=== PATIENT | female | born 1955 | race American Indian/Alaskan Native ===

== ENCOUNTER 2016-10-15 11:48 | Inpatient (IN) | payer MEDICARE ==
[2016-10-15] MEDS ORDERED: PEPCID IV ONE (12:58)
[2016-10-15] MEDS ORDERED: BENADRYL IV ONE (12:58)
--- NOTE | 2016-10-15 13:03 | Emergency Department Report ---
HPI - General Chief Complaint: Allergic Reaction Time Seen by Provider: 10/15/16 12:10 - HPI HPI: Room 16 The patient is a 60-year-old female presenting with a chief complaint of lip swelling. Patient states last night she noticed swelling over upper lip. The patient states this morning swelling had increased and she felt as though the right side of her face was developing edema as well. Patient denies any preceding trauma. Patient denies shortness of breath or tongue swelling. Patient states she has had a chronic cough since April 2016 unknown etiology. The patient states she's been on lisinopril for 5 years. Location: [see above] Duration: Constant since last night Quality: Swelling Severity: Moderate Modifying factors: [see above] Context: [see above] Mode of transportation: [not driving] ED Past Medical Hx - Past Medical History Hx Hypertension: Yes Hx Diabetes: Yes Hx Arthritis: Yes Hx Asthma: Yes - Surgical History Additional Surgical History: Breast reduction surgery 07/28 - Family History Family history: no significant - Social History Smoking Status: Never Smoker Substance Use Type: None - Medications Home Medications: Home Medications Medication Instructions Recorded Confirmed Last Taken Type Metoprolol Xl [Metoprolol 100 mg PO DAILY 06/28/13 06/21/15 06/21/15 History SUCCINATE ER TAB] metFORMIN [Glucophage] 500 mg PO BID 06/28/13 06/21/15 06/21/15 History Esomeprazole Magnesium [NexIUM] 40 mg PO DAILY 04/20/14 06/21/15 06/21/15 History Aspirin BABY CHEW TAB 81 mg PO DAILY 11/11/14 06/21/15 06/21/15 History Crestor 10 mg PO DAILY 11/11/14 06/21/15 06/21/15 History Lisinopril 10 mg PO DAILY 11/11/14 06/21/15 06/21/15 History ED Review of Systems ROS: Stated complaint: SWELLING IN MOUTH AREA Other details as noted in HPI Comment: All other systems reviewed and negative Constitutional: denies: chills, fever Eyes: denies: eye pain, eye discharge, vision change ENT: other (lip swelling). denies: throat pain Respiratory: denies: cough, shortness of breath, wheezing Cardiovascular: denies: chest pain, palpitations Endocrine: no symptoms reported Gastrointestinal: as per HPI Genitourinary: denies: urgency, dysuria, discharge Musculoskeletal: denies: back pain, joint swelling, arthralgia Skin: denies: rash, lesions Neurological: denies: headache, weakness, paresthesias Psychiatric: denies: anxiety, depression Hematological/Lymphatic: denies: easy bleeding, easy bruising Physical Exam - Physical Exam Vital Signs: Vital Signs 10/15/16 12:00 Temperature 98.1 F Pulse Rate 80 Respiratory 20 Rate Blood Pressure 136/66 O2 Sat by Pulse 98 Oximetry Physical Exam: GENERAL: The patient is well-developed well-nourished female lying on stretcher not appearing to be in acute distress. [] HEENT: Normocephalic. Atraumatic. Extraocular motions are intact. Patient has moist mucous membranes. Moderate edema of the upper lip. Oropharynx is clear NECK: Supple. There is no stridor CHEST/LUNGS: Clear to auscultation. There is no respiratory distress noted. HEART/CARDIOVASCULAR: Regular. There is no tachycardia. There is no gallop rub or murmur. ABDOMEN: Abdomen is soft, nontender. Patient has normal bowel sounds. There is no abdominal distention. SKIN: There is no rash. There is no edema. There is no diaphoresis. NEURO: The patient is awake, alert, and oriented. The patient is cooperative. The patient has normal speech MUSCULOSKELETAL: There is no evidence of acute injury. ED Course Vital Signs 10/15/16 12:00 Temperature 98.1 F Pulse Rate 80 Respiratory 20 Rate Blood Pressure 136/66 O2 Sat by Pulse 98 Oximetry ED Medical Decision Making - Differential Diagnosis angioedema Critical care attestation.: If time is entered above; I have spent that time in minutes in the direct care of this critically ill patient, excluding procedure time. ED Disposition Clinical Impression: Angioedema of lips Disposition: OP ADMITTED IP TO THIS HOSP Is pt being admited?: Yes Does the pt Need Aspirin: Yes Condition: Fair Referrals: PRIMARY CARE, [Primary Care Provider] - 3-5 Days Time of Disposition: 13:10 (hospitalist paged. Labs pending)
--- NOTE | 2016-10-15 13:11 | History and Physical Report ---
History of Present Illness Chief complaint: My lip is swollen History of present illness: 60 YO Female with HTN, DM, Metabolic Syndrome, OA, Asthma, MO presents to ED for evaluation. Patient states that she has experienced swelling in her lip for the past 1 day, with worsening symptoms over the past 6 hours. Pt states that she initially noticed the swelling last night, but awoke this morning to discover that the swelling had gotten worse. Patient denies fever, chills, skin rash, trauma, drooling, tongue swelling, shortness of breath, NVD, recent ill contacts, ingestio of food or water from new or different sources. Past History Past Medical History: arthritis, diabetes, hypertension Past Surgical History: Other (breast reduction) Social history: , lives with family. denies: smoking, alcohol abuse, prescription drug abuse, IV drug use Family history: diabetes, hypertension Medications and Allergies Allergies Allergy/AdvReac Type Severity Reaction Status Date / Time lisinopril Allergy Severe Angioedema Verified 10/15/16 13:19 Home Medications Medication Instructions Recorded Confirmed Last Taken Type Metoprolol Xl [Metoprolol 100 mg PO DAILY 06/28/13 10/15/16 10/14/16 19:00 History SUCCINATE ER TAB] 100MG metFORMIN [Glucophage] 500 mg PO BID 06/28/13 10/15/16 10/14/16 19:00 History 500MG Esomeprazole Magnesium [NexIUM] 40 mg PO DAILY 04/20/14 10/15/16 10/14/16 19:00 History 40MG Aspirin BABY CHEW TAB 81 mg PO DAILY 11/11/14 10/15/16 10/14/16 19:00 History 81M G Crestor 10 mg PO DAILY 11/11/14 10/15/16 10/14/16 19:00 History 10MG Lisinopril 10 mg PO DAILY 11/11/14 10/15/16 10/14/16 19:00 History 10 MG Review of Systems All systems: negative Constitutional: other (lip swelling) Exam - Constitutional Vitals: Temp Pulse Resp BP Pulse Ox 98.1 F 80 20 136/66 98 10/15/16 12:00 10/15/16 12:00 10/15/16 12:00 10/15/16 12:00 10/15/16 12:00 General appearance: Present: mild distress - EENT Eyes: Present: PERRL ENT: hearing intact, clear oral mucosa, other (lip swelling) - Neck Neck: Present: supple, normal ROM - Respiratory Respiratory effort: normal Respiratory: bilateral: CTA - Cardiovascular Heart Sounds: Present: S1 & S2. Absent: rub, click - Extremities Extremities: pulses symmetrical, No edema Peripheral Pulses: within normal limits - Abdominal General gastrointestinal: Present: soft, non-tender, non-distended, normal bowel sounds Female genitourinary: Present: normal - Integumentary Integumentary: Present: clear, warm, dry - Musculoskeletal Musculoskeletal: gait normal, strength equal bilaterally - Psychiatric Psychiatric: appropriate mood/affect, intact judgment & insight - Neurologic Neurologic: CNII-XII intact, moves all extremities Assessment and Plan - Patient Problems (1) Angioedema of lips Current Visit: Yes Status: Acute Qualifiers: Encounter type: E Plan to address problem: Discontinue lisinopril, steroids, benadryl, supportive care, (2) Diabetes mellitus Current Visit: No Status: Chronic Qualifiers: Diabetes mellitus type: type 2 Diabetes mellitus complication status: without complication Diabetes mellitus complication detail: D Diabetic retinopathy severity: D Proliferative retinopathy type: P Diabetes mellitus macular edema: D Diabetes mellitus detention insulin use: D Laterality: L Chronic kidney disease stage: C Qualified Code(s): E11.9 - Type 2 diabetes mellitus without complications Plan to address problem: ADA diet, insulin, accu check (3) Hypertension Current Visit: No Status: Chronic Qualifiers: Hypertension type: essential hypertension Qualified Code(s): I10 - Essential (primary) hypertension Plan to address problem: monitor bp q shift, (4) Metabolic syndrome Current Visit: Yes Status: Acute Plan to address problem: Pt counseled, regarding increased physical activity, balanced diet. (5) DVT prophylaxis Current Visit: Yes Status: Acute
[2016-10-15] MEDS ORDERED: DULCOLAX PR PRN (13:12)
[2016-10-15] MEDS ORDERED: DUONEB 0.5 MG-3 MG/3 ML SOLN IH PRN (13:12)
[2016-10-15] MEDS ORDERED: MILK OF MAGNESIA PO PRN (13:12)
[2016-10-15] MEDS ORDERED: ZOFRAN IV PRN (13:12)
[2016-10-15] MEDS ORDERED: PROVENTIL IH PRN (13:25)
[2016-10-15] MEDS ORDERED: D50W (25GM) IV PRN (13:27)
[2016-10-15 14:08] LABS: Anion Gap 18 mmol/L; Blood Urea Nitrogen 12 mg/dL (7-17); Calcium 9.6 mg/dL (8.4-10.2); Carbon Dioxide 26 mmol/L (22-30); Chloride 98.5 mmol/L (98-107); Glucose 98 mg/dL (65-100); Potassium 3.8 mmol/L (3.6-5.0); Sodium 139 mmol/L (137-145)
[2016-10-15 14:18] LABS: Basophils % (Auto) 0.6 % (0.0-1.8); Hematocrit 34.5 % (30.3-42.9); Hemoglobin 10.6 gm/dl (10.1-14.3); Mean Corpuscular HGB Conc 31 % (30-34); Mean Corpuscular Volume 79 fl (79-97); Platelet Count 284 K/mm3 (140-440); Red Blood Count 4.34 M/mm3 (3.65-5.03); Red Cell Distribution Width 16.9 % (13.2-15.2); White Blood Count 9.2 K/mm3 (4.5-11.0)
[2016-10-15 14:23] LABS: Mean Corpuscular Hemoglobin 25 pg (28-32)
--- NOTE | 2016-10-15 14:30 | Admit Criteria Form ---
Admission Criteria Documentation: SYSTEMIC OR INFECTIOUS CONDITION Clinical Indications for Admission to Inpatient Care (Place 'X' for any and all applicable criteria): Hospital admission is needed for appropriate care of the patient because of ANY ONE of the following: []I. Hemodynamic instability indicated by ANY ONE of the following(1)(2)(3)(4 )(5): []a. Vital sign abnormality not readily corrected by appropriate treatment within 12 to 24 hours indicated by ANY ONE of the following: []i) Tachycardia that persists despite appropriate treatment []ii) Hypotension that persists despite appropriate treatment []iii) Orthostatic vital sign changes that persist despite appropriate treatment []b. Vital sign abnormality that is severe indicated by ANY ONE of the following: []i. Inadequate perfusion indicated by ANY ONE of the following : []1) Lactic acidosis (greater than 2 mmol/L) []2) New abnormal capillary refill (greater than 3 seconds) []3) Reduced urine output []4) New altered mental status []5) Myocardial Ischemia []ii. Mean arterial pressure [A] less than 60 mm Hg []iii. Mean arterial pressure[A] less than 70 mm Hg after 30 minutes of appropriate treatment (eg, fluid resuscitation) []iv. Sustained heart rate greater than 120 beats per minute in adult []v. IV inotropic or vasopressor medication required to maintain adequate blood pressure or perfusion []II. Systemic or infectious condition causing severe symptoms or findings not responsive to emergency or observation care treatment (as appropriate) indicated by ANY ONE of the following: []a. Cardiac arrhythmias of immediate concern(1)(2)(3) []b. Severe endocrine disorder (eg, thyrotoxicosis, adrenal insufficiency)(4)(5) []c. Seizures (eg, new or recurrent)(6) []d. New-onset end organ failure or dysfunction as indicated by ANY ONE of the following: []i. Acute unexplained hypoxemia (eg, not from lung infection or chronic disease)(7)(8)(9) []ii. Acute renal failure as indicated by new onset of ANY ONE of the following(10)(11)(12)(13)(14): []1) 3-fold rise in serum creatinine from baseline []2) Serum creatinine greater than 4 mg/dL (354 micromoles/L) with acute rise greater than 0.5 mg/dL (44.2 micromoles/L) []3) Reduction of more than 75% in estimated glomerular filtration rate from baseline. []4) Estimated glomerular filtration rate less than 35 mL/min/1.73m2 ( 0.59 mL/sec/1.73m2) in child younger than 18 years. []5) Cessation of urine output indicated by ALL of the following: []A. Adequate volume status []B. Inadequate urine output as indicated by ANY ONE of the following: []a. Urine output less than 0.3 mL/kg/hr for 24 hours []b. Anuria (urine output less than 0.1 mL/kg/hr) for 12 hours []iii. Acute mental status changes(15) []iv. Acute hepatic failure (eg, plasma bilirubin greater than 4 mg/ dL (68 micromoles/L), new INR greater than 2.0)(16)(17) []e. Unmanageable nausea and vomiting(18) []f. New-onset or uncontrolled central diabetes insipidus(19)(20) []g. Clinically significant dehydration(18)(21) []h. Hypoglycemia(22) []i. Acidosis (pH less than 7.35) or alkalosis (pH greater than 7.45)( 22)(23) []j. Toxic drug level that indicates need for specific monitoring or treatment(24)(25) []k. Severe electrolyte abnormalities indicated by ALL of the following( 1)(2)(3): []i. Electrolytes and associated findings are not as expected for patient baseline or acceptable treatment effects. []ii. Severe abnormalities indicated by ANY ONE of the following: []1) Sodium less than 130 mEq/L (mmol/L) (new) []2) Sodium less than 135 mEq/L (mmol/L) with ANY ONE of the following: []A. Uncorrectable (to near normal or chronic baseline) after trial of outpatient and emergency treatment []B. Altered mental status []C. Seizures []D. Severe medical etiology requiring inpatient management (eg , heart failure, hypovolemia) []3) Sodium greater than 155 mEq/L (mmol/L) []4) Sodium greater than 150 mEq/L (mmol/L) with ANY ONE of the following: []A. Uncorrectable (to near normal or chronic baseline) with outpatient and emergency treatment []B. Altered mental status []C. Seizures []D. Severe medical etiology (eg, hypovolemia, diabetes insipidus) []5) Potassium less than 2.5 mEq/L (mmol/L) despite outpatient and emergency treatment []6) Potassium less than 3 mEq/L (mmol/L) with ANY ONE of the following : []A. Weakness []B. Cardiac abnormality (eg, arrhythmia, conduction disturbance ) []C. Cardiac ischemia []D. Ileus []E. Ongoing medical cause requiring inpatient management (eg, acute renal wasting or SIADH) []F. Other severe symptoms []7) Potassium greater than 6.5 mEq/L (mmol/L) []8) Potassium greater than 5 mEq/L (mmol/L) with ANY ONE of the following: []A. Uncorrectable (to near normal or chronic baseline) with outpatient and emergency treatment []B. Severe ECG findings[A] []C. Acute worsening of renal failure (creatinine greater than 2.5 mg/dL (221 micromoles/L) or significant elevation for age and size) []D. Severe weakness []E. Severe medical etiology (eg, hemolysis, infection, drug overdose) []9) Calcium less than 7 mg/dL (1.75 mmol/L) despite outpatient and emergency treatment(5) []10) Calcium less than 8 mg/dL (2 mmol/L) with significant symptoms or findings (eg, altered mental status, muscle spasms, seizures, breathing difficulty, cardiac abnormality (eg, arrhythmia or conduction disturbance))(5) []11) Calcium greater than 14 mg/dL (3.5 mmol/L)(5) []12) Calcium greater than 12 mg/dL (3 mmol/L) with ANY ONE of the following(5): []A. Uncorrectable (to near normal or chronic baseline) with outpatient and emergency treatment []B. Significant dehydration or hypovolemia as indicated by ALL of the following(3)(6)(7): []a. Not resolved with initial treatments []b. Clinically significant dehydration as indicated by ANY ONE of the following: [](1) Vomiting refractory to outpatient treatment (ie, precluding oral rehydration) [](2) Inability to drink [](3) Hypernatremia or other electrolyte abnormality unable to be corrected with outpatient and emergency treatment [](4) Failure to remain hydrated with outpatient therapy [](5) Reduced urine output [](6) Hypotension [](7) Serious cause for dehydration requiring acute hospitalization ( eg, bowel obstruction, increased intracranial pressure, infectious cause) [](8) Child with ANY ONE of the following(8): [](i) Severe abdominal tenderness [](ii) Adequate care not available at home [](iii) Severe dehydration (greater than 9% loss of body weight) []C. Significant symptoms or findings (eg, altered mental status , cardiac abnormality (eg, arrhythmia, conduction disturbance), malignant etiology requiring inpatient treatment) []13) Phosphorus less than 1 mg/dL (0.32 mmol/L) []14) Phosphorus less than 1.5 mg/dL (0.48 mmol/L) with ANY ONE of the following: []A. Patient unresponsive to outpatient and emergency treatment []B. Significant symptoms or findings (eg, weakness, altered mental status, breathing difficulty, seizures, rhabdomyolysis) []15) Phosphorus greater than 10 mg/dL (3.2 mmol/L) []16) Phosphorus greater than 4.5 mg/dL (1.45 mmol/L) (new) with ANY ONE of the following: []A. Severe medical etiology (eg, crush injury, acute renal failure) []B. Associated hypocalcemia with significant findings (eg, neurologic symptoms, altered mental status, muscle spasms, seizures, breathing difficulty, cardiac abnormality (eg, arrhythmia, conduction disturbance)) []16) Magnesium less than 1 mg/dL (0.41 mmol/L) []17) Magnesium less than 1.5 mg/dL (0.62 mmol/L) with ANY ONE of the following: []A. Patient unresponsive to outpatient and emergency treatment []B. Associated hypocalcemia with significant findings (eg, altered mental status, muscle spasms, seizures, breathing difficulty, cardiac abnormality (eg, arrhythmia, conduction disturbance)) []C. Associated hypokalemia (potassium less than 3 mEq/L (mmol/L )) with risk of arrhythmia []18) Magnesium greater than 4 mEq/L (2 mmol/L) []19) Magnesium greater than 2.5 mEq/L (1.25 mmol/L) with significant symptoms or findings (eg, weakness, altered mental status, cardiac abnormality (eg, arrhythmia, conduction disturbance), breathing difficulty, severe medical etiology (eg, renal failure, hypovolemia)) []20) Uric acid greater than 20 mg/dL (1190 micromoles/L)(9) []21) Uric acid greater than 8 mg/dL (476 micromoles/L) with significant symptoms or findings of tumor lysis syndrome (eg, creatinine greater than 1.5 times upper limit of normal, cardiac abnormality (eg , arrhythmia, conduction disturbance), seizure)(9) []III. High fever or other high-risk infection situation as indicated by ANY ONE of the following(26)(27)(28): []a. Outpatient and observation care antimicrobial treatment unavailable, not effective, or not appropriate []b. Documented bacteremia []c. Temperature greater than 104.9 degrees F (40.5 degrees C) (oral) []d. Temperature greater than 103.1 degrees F (39.5 degrees C) (oral) or less than 96.8 degrees F (36 degrees C) (rectal) that does not respond to emergency treatment and observation care []IV. High-risk febrile neutropenia[A] as indicated by ANY ONE of the following(29)(30)(31)(32): []a. Profound neutropenia[B] anticipated to extend for more than 7 days []b. Hemodynamic instability []c. Hypoxemia []d. Tachypnea []e. Altered mental status []f. New-onset abdominal pain []g. New-onset vomiting or diarrhea []h. Oral or gastrointestinal mucositis that interferes with swallowing or causes severe diarrhea []i. Focal infection (eg, cellulitis, pneumonia, central line or catheter infection, perirectal abscess) []j. Renal insufficiency (eg, GFR of less than 30 mL/min/1.73m2 (0.5 mL/sec /1.73m2)). []k. Severe liver dysfunction (transaminase levels greater than 5 times normal) []l. Platelet count less than 50,000/mm3 (50 x109/L)(33) []m. Leukemia or lymphoma induction therapy []n. Leukemia not in complete remission or with evidence of disease progression []o. Bone marrow transplant patient []p. Alemtuzumab being used for therapy []q. [employer] Supportive Care in Cancer (MASCC) Risk Index score of less than 21[C](33)(35). []V. Isolation required (eg, tuberculosis that requires isolation, Ebola infection)[D](36)(37)(38)(39)(40) []. Gangrene that requires treatment beyond emergency or observation level care(41)(42) []VII. Antitoxin administration and ongoing observation required (eg, tetanus, botulism)(43)(44) []. Suspected infection with rapid progression or severe symptoms as indicated by ANY ONE of the following(45): []a. Streptococcal or staphylococcal toxic shock(46) []b. Diphtheria(47) []c. Hantavirus(48) []d. Severe acute respiratory syndrome(8)(49) []e. Anthrax(50) []f. Ebola[D](36)(37)(38) []g. Necrotizing soft tissue infection(41)(42) []h. Plague(50) []i. Other suspected infection that requires care beyond emergency or observation level care []VII. Severe adverse drug or systemic toxin reaction as indicated by ANY ONE of the following(24): []a. Serotonin syndrome(51)(52) []b. Neuroleptic malignant syndrome(51)(52) []c. Cholinergic syndrome with severe symptoms (eg, bronchorrhea, weakness , mental status changes, seizures)(53) []d. Anticholinergic syndrome []e. Sympathetic syndrome with severe symptoms (eg, seizures, mental status changes, cardiac dysrhythmias) []f. Other severe adverse drug or systemic toxin reaction that remains after emergency or observation level care (as appropriate) []VIII. Allergic reaction with severe symptoms (not responsive to emergency or observation care treatment as appropriate), including ANY ONE of the following(54): []a. Airway edema (pharyngeal, epiglottic, or laryngeal edema) []b. Stridor []c. Respiratory failure []d. Bronchospasm []e. Hypotension []IX. Environmental emergency (not responsive to emergency or observation care treatment as appropriate) as indicated by ANY ONE of the following(55)(56): []a. Hyperthermia []b. Heat stroke []c. Heat exhaustion []d. Hypothermia (temperature less than 95 degrees F (35 degrees C) rectal) (57) []e. Electrocution(58) []X. Complications of transplanted organ (ie, not covered elsewhere)[E] indicated by ANY ONE of the following(59): []a. Acute graft rejection (or graft vs. host disease)[F] requiring inpatient management (eg, intravenous immunosuppression)(60)(61)(62)( 63) []b. Acute failure of transplanted organ necessitating inpatient care (eg, cannot be managed in other setting) []c. Infection requiring inpatient management (eg, Hemodynamic instability, need for intravenous antimicrobial treatment)(64)(65) []d. Other complication of transplanted organ requiring inpatient management [X]XI. Systemic or Infectious Condition condition, symptom, or finding for which emergency and observation care have failed or are not considered appropriate. See General Criteria: Observation Care, General Admission Criteria or Pediatric General Admission Criteria guideline as appropriate. The original [facility] content created by [facility] has been revised. The portions of the content which have been revised are identified through the use of italic text or in bold and [facility] has neither reviewed nor approved the modified material. All other unmodified content is copyright [facility]. Please see references footnoted in the original [facility] edition 2016 Admission Criteria Met: Yes
[2016-10-15] MEDS: TYLENOL PO PRN (18:15)
[2016-10-15] MEDS ORDERED: PNEUMOVAX 23 IM ONE (18:30)
[2016-10-15] MEDS ORDERED: FLUARIX QUAD 2016-2017(36 MOS+) IM ONE (18:30)
[2016-10-16] MEDS: NOVOLOG SUB-Q SCH ×5 (00:49→18:24)
[2016-10-16] MEDS ORDERED: BENADRYL IV ONE (08:16)
[2016-10-16] MEDS: TYLENOL PO PRN (09:47)
[2016-10-16] MEDS: PROTONIX PO SCH (09:48)
[2016-10-16] MEDS ORDERED: NON-FORMULARY (Esomeprazole Magnesium [Nexium] 40 MG) PO SCH (10:00)
[2016-10-16] MEDS ORDERED: CRESTOR 10 MG PO SCH (10:00)
[2016-10-16] MEDS: TOPROL XL PO SCH (10:58)
--- NOTE | 2016-10-16 15:41 | Progress Note ---
Assessment and Plan Assessment and plan: 60 years old female with hypertension on treatment with lisinopril for years, developed cough a couple of months ago and yesterday swollen upper lip 1. Angioedema Likely secondary to lisinopril which was discontinued Continue IV corticosteroids Improving 2. Hypertension Lisinopril discontinued due to angioedema Currently on metoprolol only SBP in upper 130s Monitor and add another antihypertensive if needed (consider diuretic, calcium channel yaya, hydralazine) 3. Diabetes Episode of hypoglycemia on admission Antidiabetics on hold Monitor blood sugars; likely will be elevated due to corticosteroid use 4. Obesity Counseled regarding importance of losing weight and lifestyle changes 5. DVT/GI prophylaxis 6. Dispo Likely discharge in a.m. History Interval history: upper lip still swollen, no difficulty swallowing or breathing Hospitalist Physical - Constitutional Vitals: Temp Pulse Resp BP Pulse Ox 97.7 F 101 H 20 123/64 98 10/16/16 07:00 10/16/16 10:58 10/16/16 07:00 10/16/16 10:58 10/16/16 10:00 General appearance: Present: no acute distress, obese - EENT Eyes: Present: PERRL, EOM intact. Absent: scleral icterus, conjunctival injection ENT: other (upper lip edema) - Neck Neck: Present: supple, normal ROM. Absent: masses or JVD - Respiratory Respiratory effort: normal Respiratory: bilateral: CTA, negative: rhonchi, wheezing - Cardiovascular Rhythm: other (tachycardic) Heart Sounds: Present: S1 & S2. Absent: systolic murmur - Extremities Extremities: no ischemia - Abdominal General gastrointestinal: soft, non-tender, non-distended, normal bowel sounds - Integumentary Integumentary: Present: warm, dry. Absent: jaundice, rash - Psychiatric Psychiatric: cooperative - Neurologic Neurologic: CNII-XII intact, no focal deficits Results - Labs CBC & Chem 7: 10/15/16 13:38 10/15/16 13:38 Labs: Laboratory Last Values WBC 9.2 K/mm3 (4.5-11.0) 10/15/16 13:38 RBC 4.34 M/mm3 (3.65-5.03) 10/15/16 13:38 Hgb 10.6 gm/dl (10.1-14.3) 10/15/16 13:38 Hct 34.5 % (30.3-42.9) 10/15/16 13:38 MCV 79 fl (79-97) 10/15/16 13:38 MCH 25 pg (28-32) L 10/15/16 13:38 MCHC 31 % (30-34) 10/15/16 13:38 RDW 16.9 % (13.2-15.2) H 10/15/16 13:38 Plt Count 284 K/mm3 (140-440) 10/15/16 13:38 Lymph % (Auto) 29.5 % (13.4-35.0) 10/15/16 13:38 [place] % (Auto) 7.1 % (0.0-7.3) 10/15/16 13:38 Eos % (Auto) 1.0 % (0.0-4.3) 10/15/16 13:38 Baso % (Auto) 0.6 % (0.0-1.8) 10/15/16 13:38 Lymph # 2.7 K/mm3 (1.2-5.4) 10/15/16 13:38 [place] # 0.7 K/mm3 (0.0-0.8) 10/15/16 13:38 Eos # 0.1 K/mm3 (0.0-0.4) 10/15/16 13:38 Baso # 0.1 K/mm3 (0.0-0.1) 10/15/16 13:38 Seg Neutrophils % 61.8 % (40.0-70.0) 10/15/16 13:38 Seg Neutrophils # 5.7 K/mm3 (1.8-7.7) 10/15/16 13:38 Sodium 139 mmol/L (137-145) 10/15/16 13:38 Potassium 3.8 mmol/L (3.6-5.0) 10/15/16 13:38 Chloride 98.5 mmol/L (98-107) 10/15/16 13:38 Carbon Dioxide 26 mmol/L (22-30) 10/15/16 13:38 Anion Gap 18 mmol/L 10/15/16 13:38 BUN 12 mg/dL (7-17) 10/15/16 13:38 Creatinine 0.8 mg/dL (0.7-1.2) 10/15/16 13:38 Estimated GFR > 60 ml/min 10/15/16 13:38 BUN/Creatinine Ratio 15.00 % 10/15/16 13:38 Glucose 98 mg/dL (65-100) 10/15/16 13:38 POC Glucose 239 (70-105) H 10/16/16 06:27 Calcium 9.6 mg/dL (8.4-10.2) 10/15/16 13:38
[2016-10-17] MEDS: NOVOLOG SUB-Q SCH ×3 (00:20→12:35)
--- NOTE | 2016-10-17 09:00 | Discharge Summary ---
Providers - Providers Date of Admission: 10/15/16 13:13 Date of discharge: 10/17/16 Attending physician: SAMIR LIU Primary care physician: S[employer] DYE MIXER Hospitalization Condition: Good Hospital course: Patient is 60 yo with hypertension, diabetes. She was on Lisinopril and Metoprolol. She presented with swelling both upper and lower lips of face. She was diagnosed wth angioedema. Lisinopril was discontinued. She was started on solu-medrol, Benadryl, Pepcid and admitted. She felt better by next day. Swelling of lips was markedly reduced. No shortness of breath. Patient was stable and therefore discharged home. Disposition: DISCHARGED TO HOME OR SELFCARE - Discharge Diagnoses (1) Angioedema Status: Acute Qualifiers: Encounter type: E (2) Diabetes mellitus type 2 in obese Status: Chronic (3) Morbid obesity Status: Chronic Qualifiers: Obesity type: O (4) Hypertension Status: Chronic Qualifiers: Hypertension type: essential hypertension Qualified Code(s): I10 - Essential (primary) hypertension Core Measure Documentation - Palliative Care Palliative Care/ Comfort Measures: Not Applicable - Core Measures Any of the following diagnoses?: none Exam - Constitutional Vitals: Temp Pulse Resp BP Pulse Ox 98.3 F 83 20 123/58 98 10/17/16 07:00 10/17/16 07:00 10/17/16 07:00 10/17/16 07:00 10/17/16 07:00 General appearance: Present: no acute distress - Neck Neck: Present: supple - Respiratory Respiratory: bilateral: CTA - Extremities Extremities: No edema - Abdominal General gastrointestinal: Present: soft, non-tender, non-distended, normal bowel sounds - Musculoskeletal Musculoskeletal: strength equal bilaterally - Neurologic Neurologic: moves all extremities, other (AAO x 3) Plan Activity: no restrictions Diet: low fat, low cholesterol, low salt Additional Instructions: 1. Following up with primary care physician in one week. Follow up with: PRIMARY CARE, [Primary Care Provider] - 3-5 Days Prescriptions: diphenhydrAMINE [Benadryl CAP] 25 mg PO Q8HR #10 capsule Famotidine [Pepcid] 20 mg PO BID #14 tablet Prednisone [predniSONE 5 mg (6-Day Pack, 21 Tabs)] 5 mg PO .TAPER #1 tab.ds.pk
[2016-10-17] MEDS: TOPROL XL PO SCH (09:30)
[2016-10-17] MEDS: PROTONIX PO SCH (09:30)
[2016-10-17 09:32] VITALS: BP 138/92
== END 2016-10-17 13:00 | disposition home or self-care (01) | DRG 916 ==
LOC: ED 11:48 → 3A 13:13
PROVIDERS: ADMIT Internal Medicine; ATTEND Internal Medicine
DX: T78.3XXA Angioneurotic edema, initial encounter (principal); Z68.41 Body mass index [BMI] 40.0-44.9, adult; I10 Essential (primary) hypertension; E11.9 Type 2 diabetes mellitus without complications; T46.4X5A Adverse effect of angiotensin-converting-enzyme inhibitors, initial encounter; E88.81 Metabolic syndrome and other insulin resistance; E66.01 Morbid (severe) obesity due to excess calories; M19.90 Unspecified osteoarthritis, unspecified site; Z82.49 Family history of ischemic heart disease and other diseases of the circulatory system; Z83.3 Family history of diabetes mellitus; Z88.8 Allergy status to other drugs, medicaments and biological substances
CPT/HCPCS: 36415; 80048; 82962; 85025; 90686; 90732; 96374; 96375; A9270-GY; J1200; J1815; J2920; J2930

== ENCOUNTER 2017-07-25 10:18 | Emergency (ER) | payer MEDICARE ==
[2017-07-25 12:47] VITALS: BP 145/84
--- NOTE | 2017-07-25 12:49 | Emergency Department Report ---
ED General Adult HPI - General Chief complaint: BP Check / Ring removal req Stated complaint: B/P CHECK Time Seen by Provider: 07/25/17 12:41 Source: patient Mode of arrival: Ambulatory Limitations: No Limitations - History of Present Illness Initial comments: This is a 61-year-old female nontoxic, well nourished in appearance, no acute signs of distress presents to the ED with c/o of low blood pressure. Patient stated she was seen at her storeroom keeper's office and was taking blood pressure once which stated was low at 90s over 60s. Patient stated that her storeroom keeper' s stated to her to go see her primary care doctor who she has been there and her primary care doctor refused to take her blood pressure and sent emergency room. In the emergency room patient has blood pressure within normal limits. Patient denies any headache. Patient denies any symptoms. Patient states allergies to lisinopril and Maurice inhibitors. Past medical history includes arthritis, asthma, diabetes, and hypertension. MD Complaint: blood pressure evaluation Severity scale (0 -10): 0 Improves with: none Worsens with: none Associated Symptoms: denies other symptoms. denies: confusion, chest pain, cough, diaphoresis, fever/chills, headaches, loss of appetite, malaise, nausea/ vomiting, rash, seizure, shortness of breath, syncope, weakness Treatments Prior to Arrival: none - Related Data Home Medications Medication Instructions Recorded Confirmed Last Taken Metoprolol Xl [Metoprolol 100 mg PO DAILY 06/28/13 10/15/16 10/14/16 19:00 SUCCINATE ER TAB] 100MG metFORMIN [Glucophage] 500 mg PO BID 06/28/13 10/15/16 10/14/16 19:00 500MG Esomeprazole Magnesium [NexIUM] 40 mg PO DAILY 04/20/14 10/15/16 10/14/16 19:00 40MG Aspirin BABY CHEW TAB 81 mg PO DAILY 11/11/14 10/15/16 10/14/16 19:00 81M G Crestor 10 mg PO DAILY 11/11/14 10/15/16 10/14/16 19:00 10MG Previous Rx's Medication Instructions Recorded Last Taken Type ALBUTEROL Inhaler [ProAir HFA 2 puff IH QID PRN #1 inhalation 07/08/17 Unknown Rx Inhaler] Amoxicillin/Potassium Clav 1 each PO BID #10 tablet 07/08/17 Unknown Rx [Augmentin 875-125 Tablet] Fluticasone [Flonase] 1 spray NS QDAY #1 bottle 07/08/17 Unknown Rx Prednisone [predniSONE 10 mg 10 mg PO .TAPER #1 tab.ds.pk 07/08/17 Unknown Rx (6-Day Pack, 21 Tabs)] traMADol [Ultram] 50 mg PO Q6HR PRN #14 tablet 07/08/17 Unknown Rx Allergies Allergy/AdvReac Type Severity Reaction Status Date / Time lisinopril Allergy Severe Angioedema Verified 10/15/16 13:19 MAURICE Inhibitors AdvReac Severe Angioedema Verified 10/16/16 09:13 ED Review of Systems ROS: Stated complaint: B/P CHECK Other details as noted in HPI Constitutional: denies: chills, fever Eyes: denies: eye pain, eye discharge, vision change ENT: denies: ear pain, throat pain Respiratory: denies: cough, shortness of breath, wheezing Cardiovascular: denies: chest pain, palpitations Endocrine: no symptoms reported Gastrointestinal: denies: abdominal pain, nausea, diarrhea Genitourinary: denies: urgency, dysuria, discharge Musculoskeletal: denies: back pain, joint swelling, arthralgia Skin: denies: rash, lesions Neurological: denies: headache, weakness, paresthesias Psychiatric: denies: anxiety, depression Hematological/Lymphatic: denies: easy bleeding, easy bruising ED Past Medical Hx - Past Medical History Hx Hypertension: Yes Hx Congestive Heart Failure: No Hx Diabetes: Yes Hx Arthritis: Yes Hx Asthma: Yes Hx COPD: No Hx HIV: No - Surgical History Hx Breast Surgery: Yes (breast reduction 07/2016) Additional Surgical History: Breast reduction surgery 07/28 - Social History Smoking Status: Never Smoker Substance Use Type: None - Medications Home Medications: Home Medications Medication Instructions Recorded Confirmed Last Taken Type Metoprolol Xl [Metoprolol 100 mg PO DAILY 06/28/13 10/15/16 10/14/16 19:00 History SUCCINATE ER TAB] 100MG metFORMIN [Glucophage] 500 mg PO BID 06/28/13 10/15/16 10/14/16 19:00 History 500MG Esomeprazole Magnesium [NexIUM] 40 mg PO DAILY 04/20/14 10/15/16 10/14/16 19:00 History 40MG Aspirin BABY CHEW TAB 81 mg PO DAILY 11/11/14 10/15/16 10/14/16 19:00 History 81M G Crestor 10 mg PO DAILY 11/11/14 10/15/16 10/14/16 19:00 History 10MG ALBUTEROL Inhaler [ProAir HFA 2 puff IH QID PRN #1 inhalation 07/08/17 Unknown Rx Inhaler] Amoxicillin/Potassium Clav 1 each PO BID #10 tablet 07/08/17 Unknown Rx [Augmentin 875-125 Tablet] Fluticasone [Flonase] 1 spray NS QDAY #1 bottle 07/08/17 Unknown Rx Prednisone [predniSONE 10 mg 10 mg PO .TAPER #1 tab.ds.pk 07/08/17 Unknown Rx (6-Day Pack, 21 Tabs)] traMADol [Ultram] 50 mg PO Q6HR PRN #14 tablet 07/08/17 Unknown Rx ED Physical Exam - General Limitations: No Limitations General appearance: alert, in no apparent distress - Head Head exam: Present: atraumatic, normocephalic - Eye Eye exam: Present: normal appearance - ENT ENT exam: Present: mucous membranes moist - Neck Neck exam: Present: normal inspection - Respiratory Respiratory exam: Present: normal lung sounds bilaterally. Absent: respiratory distress - Cardiovascular Cardiovascular Exam: Present: regular rate, normal rhythm. Absent: systolic murmur, diastolic murmur, rubs, gallop - GI/Abdominal GI/Abdominal exam: Present: soft, normal bowel sounds - Extremities Exam Extremities exam: Present: normal inspection - Back Exam Back exam: Present: normal inspection - Neurological Exam Neurological exam: Present: alert, oriented X3 - Psychiatric Psychiatric exam: Present: normal affect, normal mood - Skin Skin exam: Present: warm, dry, intact, normal color. Absent: rash ED Course Vital Signs 07/25/17 11:21 Temperature 98.6 F Pulse Rate 84 Respiratory 20 Rate Blood Pressure 143/63 O2 Sat by Pulse 99 Oximetry - Reevaluation(s) Reevaluation #1: 07/25/17 12:47 Patient is speaking in full sentences with no signs of distress noted. ED Medical Decision Making - Medical Decision Making Patient is 61-year-old female with normal vitals signs. Patient is asymptomatic. Patient was instructed to Follow-up with a primary care doctor in 3-5 days or if symptoms worsen and continue return to emergency room as soon as possible. At time of discharge, the patient does not seem toxic or ill in appearance. No acute signs of distress noted. Patient agrees to discharge treatment plan of care. No further questions noted by the patient. Critical care attestation.: If time is entered above; I have spent that time in minutes in the direct care of this critically ill patient, excluding procedure time. ED Disposition Clinical Impression: Low blood pressure reading Disposition: DC- TO HOME OR SELFCARE Is pt being admited?: No Does the pt Need Aspirin: No Condition: Stable Additional Instructions: Follow-up with a primary care doctor in 3-5 days or if symptoms worsen and continue return to emergency room as soon as possible. Referrals: CHEPE VILLELA MD [Primary Care Provider] - 3-5 Days DIANA MARTINEZ MD [Staff Physician] - 3-5 Days [facility] [Outside] - 3-5 Days [facility] [Outside] - 3-5 Days Forms: Work/School Release Form(ED)
== END 2017-07-25 12:58 | disposition home or self-care (01) ==
LOC: ED 10:18
DX: I95.9 Hypotension, unspecified (principal); E11.9 Type 2 diabetes mellitus without complications; J45.909 Unspecified asthma, uncomplicated
CPT/HCPCS: 99282

== ENCOUNTER 2017-08-08 07:38 | Emergency (ER) | payer MEDICARE ==
[2017-08-08 08:17] LABS: Basophils % (Auto) 0.4 % (0.0-1.8); Eosinophils # (Auto) 0.1 K/mm3 (0.0-0.4); Hematocrit 32.6 % (30.3-42.9); Hemoglobin 10.5 gm/dl (10.1-14.3); Lymphocytes # (Auto) 2.3 K/mm3 (1.2-5.4); Lymphocytes % (Auto) 27.8 % (13.4-35.0); Mean Corpuscular HGB Conc 32 % (30-34); Mean Corpuscular Hemoglobin 28 pg (28-32); Mean Corpuscular Volume 87 fl (79-97); Monocytes # (Auto) 0.6 K/mm3 (0.0-0.8); Monocytes % (Auto) 7.1 % (0.0-7.3); Platelet Count 305 K/mm3 (140-440); Red Blood Count 3.73 M/mm3 (3.65-5.03); Red Cell Distribution Width 17.6 % (13.2-15.2)
[2017-08-08 08:39] LABS: Alanine Aminotransferase 30 units/L (7-56); Albumin 3.8 g/dL (3.9-5); BUN/Creatinine Ratio 9; Blood Urea Nitrogen 6 mg/dL (7-17); Calcium 8.8 mg/dL (8.4-10.2); Hemolysis Index 0
[2017-08-08] MEDS ORDERED: ZOFRAN ODT PO ONE (10:18)
[2017-08-08] MEDS ORDERED: NORCO 5/325 PO ONE (10:18)
--- NOTE | 2017-08-08 10:31 | Emergency Department Report ---
ED General Adult HPI - General Chief complaint: Abdominal Pain Stated complaint: RICHARDS[place]/SOB/VOMITING Time Seen by Provider: 08/08/17 10:08 Source: patient Mode of arrival: Ambulatory Limitations: No Limitations - History of Present Illness Initial comments: Patient complains of a gradual onset headache of 2-3 days duration. She did state that she's been to the emergency room with a headache before but perhaps was not her primary complaint when she was seen here her last visit. She denies ever having a CT of her head. She is recently been admitted to this facility and of December for GI-related problems. A CT of her abdomen and pelvis showed a hypodensity in her pancreas consider MRI. She has no known history of cancer. She states the headache has been moderate in intensity and bifrontotemporal in location. She complains of nausea and vomited once today. He's had no fever or chills. She denies photophobia. She denies any neck stiffness or soreness. He's had no difficulty with speech gait or activities of daily living. She denies weakness and numbness. -: Gradual, days(s) Location: head Radiation: non-radiation Quality: dull Consistency: intermittent Improves with: none Worsens with: none Associated Symptoms: denies other symptoms (except), nausea/vomiting Treatments Prior to Arrival: none - Related Data Home Medications Medication Instructions Recorded Confirmed Last Taken Metoprolol Xl [Metoprolol 100 mg PO DAILY 06/28/13 10/15/16 10/14/16 19:00 SUCCINATE ER TAB] 100MG metFORMIN [Glucophage] 500 mg PO BID 06/28/13 10/15/16 10/14/16 19:00 500MG Esomeprazole Magnesium [NexIUM] 40 mg PO DAILY 04/20/14 10/15/16 10/14/16 19:00 40MG Aspirin BABY CHEW TAB 81 mg PO DAILY 11/11/14 10/15/16 10/14/16 19:00 81M G Crestor 10 mg PO DAILY 11/11/14 10/15/16 10/14/16 19:00 10MG Previous Rx's Medication Instructions Recorded Last Taken Type ALBUTEROL Inhaler [ProAir HFA 2 puff IH QID PRN #1 inhalation 07/08/17 Unknown Rx Inhaler] Amoxicillin/Potassium Clav 1 each PO BID #10 tablet 07/08/17 Unknown Rx [Augmentin 875-125 Tablet] Fluticasone [Flonase] 1 spray NS QDAY #1 bottle 07/08/17 Unknown Rx Prednisone [predniSONE 10 mg 10 mg PO .TAPER #1 tab.ds.pk 07/08/17 Unknown Rx (6-Day Pack, 21 Tabs)] traMADol [Ultram] 50 mg PO Q6HR PRN #14 tablet 07/08/17 Unknown Rx Butalb/Acetamin/Caff 50-325-40 1 tab PO Q6HR PRN #10 tab 08/08/17 Unknown Rx [Fioricet] HYDROcodone/APAP 5-325 [[place] 1 each PO Q6HR PRN #7 tablet 08/08/17 Unknown Rx 5/325] Ondansetron [Zofran Odt] 4 mg PO Q6H #7 tab.rapdis 08/08/17 Unknown Rx Allergies Allergy/AdvReac Type Severity Reaction Status Date / Time lisinopril Allergy Severe Angioedema Verified 10/15/16 13:19 CINDY Inhibitors AdvReac Severe Angioedema Verified 10/16/16 09:13 ED Review of Systems ROS: Stated complaint: R[place]/SOB/VOMITING Other details as noted in HPI Constitutional: denies: chills, fever Eyes: denies: eye pain, eye discharge, vision change ENT: denies: ear pain, throat pain Respiratory: denies: cough, shortness of breath, wheezing Cardiovascular: denies: chest pain, palpitations Endocrine: no symptoms reported Gastrointestinal: denies: abdominal pain, nausea, diarrhea Genitourinary: denies: urgency, dysuria, discharge Musculoskeletal: denies: back pain, joint swelling, arthralgia Skin: denies: rash, lesions Neurological: denies: headache, weakness, paresthesias Psychiatric: denies: anxiety, depression Hematological/Lymphatic: denies: easy bleeding, easy bruising ED Past Medical Hx - Past Medical History Hx Hypertension: Yes Hx Congestive Heart Failure: No Hx Diabetes: Yes Hx Arthritis: Yes Hx Asthma: Yes Hx COPD: No Hx HIV: No - Surgical History Hx Breast Surgery: Yes (breast reduction 07/2016) Additional Surgical History: Breast reduction surgery 07/28 - Social History Smoking Status: Never Smoker - Medications Home Medications: Home Medications Medication Instructions Recorded Confirmed Last Taken Type Metoprolol Xl [Metoprolol 100 mg PO DAILY 06/28/13 10/15/16 10/14/16 19:00 History SUCCINATE ER TAB] 100MG metFORMIN [Glucophage] 500 mg PO BID 06/28/13 10/15/16 10/14/16 19:00 History 500MG Esomeprazole Magnesium [NexIUM] 40 mg PO DAILY 04/20/14 10/15/16 10/14/16 19:00 History 40MG Aspirin BABY CHEW TAB 81 mg PO DAILY 11/11/14 10/15/16 10/14/16 19:00 History 81M G Crestor 10 mg PO DAILY 11/11/14 10/15/16 10/14/16 19:00 History 10MG ALBUTEROL Inhaler [ProAir HFA 2 puff IH QID PRN #1 inhalation 07/08/17 Unknown Rx Inhaler] Amoxicillin/Potassium Clav 1 each PO BID #10 tablet 07/08/17 Unknown Rx [Augmentin 875-125 Tablet] Fluticasone [Flonase] 1 spray NS QDAY #1 bottle 07/08/17 Unknown Rx Prednisone [predniSONE 10 mg 10 mg PO .TAPER #1 tab.ds.pk 07/08/17 Unknown Rx (6-Day Pack, 21 Tabs)] traMADol [Ultram] 50 mg PO Q6HR PRN #14 tablet 07/08/17 Unknown Rx Butalb/Acetamin/Caff 50-325-40 1 tab PO Q6HR PRN #10 tab 08/08/17 Unknown Rx [Fioricet] HYDROcodone/APAP 5-325 [[place] 1 each PO Q6HR PRN #7 tablet 08/08/17 Unknown Rx 5/325] Ondansetron [Zofran Odt] 4 mg PO Q6H #7 tab.rapdis 08/08/17 Unknown Rx ED Physical Exam - General Limitations: No Limitations General appearance: alert, in no apparent distress - Head Head exam: Present: atraumatic, normocephalic - Eye Eye exam: Present: normal appearance, PERRL, EOMI. Absent: scleral icterus - ENT ENT exam: Present: mucous membranes moist - Neck Neck exam: Present: normal inspection. Absent: tenderness, meningismus - Respiratory Respiratory exam: Present: normal lung sounds bilaterally. Absent: respiratory distress - Cardiovascular Cardiovascular Exam: Present: regular rate, normal rhythm. Absent: systolic murmur, diastolic murmur, rubs, gallop - GI/Abdominal GI/Abdominal exam: Present: soft, normal bowel sounds. Absent: distended, tenderness, guarding, rebound, rigid - Extremities Exam Extremities exam: Present: normal inspection - Back Exam Back exam: Present: normal inspection - Neurological Exam Neurological exam: Present: alert, oriented X3, CN II-XII intact, normal gait, other (no deficits noted). Absent: motor sensory deficit - Psychiatric Psychiatric exam: Present: normal affect, normal mood - Skin Skin exam: Present: warm, dry, intact, normal color. Absent: rash ED Course Vital Signs 08/08/17 08/08/17 07:48 12:06 Temperature 97.9 F Pulse Rate 63 62 Respiratory 16 16 Rate Blood Pressure 160/65 Blood Pressure 128/81 [Left] O2 Sat by Pulse 96 95 Oximetry - Reevaluation(s) Reevaluation #1: Patient is given analgesia and antiemetic and a CT was ordered. 08/08/17 10:32 Reevaluation #2: Patient was alert and anxious on reexamination. Her headache was improved. Now she started to complain of her chronic abdominal pain. She doesn't meet criteria for emergency hospitalization at this point. She will be referred back to GI for further care and evaluation. She will be treated as an outpatient with analgesia. CT of the head was normal. 08/08/17 13:48 ED Medical Decision Making - Lab Data Result diagrams: 08/08/17 07:56 08/08/17 07:56 Laboratory Results - last 24 hr 08/08/17 08/08/17 07:56 07:56 WBC 8.4 RBC 3.73 Hgb 10.5 Hct 32.6 MCV 87 MCH 28 MCHC 32 RDW 17.6 H Plt Count 305 Lymph % (Auto) 27.8 [place] % (Auto) 7.1 Eos % (Auto) 1.0 Baso % (Auto) 0.4 Lymph # 2.3 [place] # 0.6 Eos # 0.1 Baso # 0.0 Seg Neutrophils % 63.7 Seg Neutrophils # 5.4 Sodium 140 Potassium 3.4 L Chloride 99.9 Carbon Dioxide 26 Anion Gap 18 BUN 6 L Creatinine 0.7 Estimated GFR > 60 BUN/Creatinine Ratio 9 Glucose 146 H Calcium 8.8 Total Bilirubin 0.70 AST 47 H ALT 30 Alkaline Phosphatase 81 Total Protein 7.1 Albumin 3.8 L Albumin/Globulin Ratio 1.2 Laboratory Results - last 24 hr 08/08/17 08/08/17 08/08/17 07:56 07:56 Unknown WBC 8.4 RBC 3.73 Hgb 10.5 Hct 32.6 MCV 87 MCH 28 MCHC 32 RDW 17.6 H Plt Count 305 Lymph % (Auto) 27.8 [place] % (Auto) 7.1 Eos % (Auto) 1.0 Baso % (Auto) 0.4 Lymph # 2.3 [place] # 0.6 Eos # 0.1 Baso # 0.0 Seg Neutrophils % 63.7 Seg Neutrophils # 5.4 Sodium 140 Potassium 3.4 L Chloride 99.9 Carbon Dioxide 26 Anion Gap 18 BUN 6 L Creatinine 0.7 Estimated GFR > 60 BUN/Creatinine Ratio 9 Glucose 146 H Calcium 8.8 Total Bilirubin 0.70 AST 47 H ALT 30 Alkaline Phosphatase 81 Total Protein 7.1 Albumin 3.8 L Albumin/Globulin Ratio 1.2 Urine Color Yellow Urine Turbidity Clear Urine pH 5.0 Ur Specific [place] 1.016 Urine Protein <15 mg/dl Urine Glucose (UA) Neg Urine Ketones 20 Urine Blood Neg Urine Nitrite Neg Urine Bilirubin Neg Urine Urobilinogen 4.0 Ur Leukocyte Esterase Neg Urine WBC (Auto) 1.0 Urine RBC (Auto) 3.0 U Epithel Cells (Auto) < 1.0 Urine Mucus Few Critical care attestation.: If time is entered above; I have spent that time in minutes in the direct care of this critically ill patient, excluding procedure time. ED Disposition Clinical Impression: Abdominal pain Qualifiers: Abdominal location: unspecified location Qualified Code(s): R10.9 - Unspecified abdominal pain Cephalalgia Qualifiers: Headache type: unspecified Headache chronicity pattern: unspecified pattern Intractability: not intractable Qualified Code(s): R51 - Headache Disposition: DC-09 OP ADMIT IP TO THIS HOSP Is pt being admited?: No Does the pt Need Aspirin: No Condition: Stable Instructions: Abdominal Pain (ED), Acute Headache (ED) Additional Instructions: Return any acute change or problem. Follow-up with your GI specialists. Rx as needed for pain. Prescriptions: Butalb/Acetamin/Caff 50-325-40 [Fioricet] 1 tab PO Q6HR PRN #10 tab PRN Reason: Headache HYDROcodone/APAP 5-325 [[place] 5/325] 1 each PO Q6HR PRN #7 tablet PRN Reason: Pain Ondansetron [Zofran Odt] 4 mg PO Q6H #7 tab.veronique Referrals: PRIMARY CARE, [Primary Care Provider] - 3-5 Days [facility] [Provider Group] - 24 Hours Time of Disposition: 13:59
[2017-08-08] MEDS ORDERED: K-DUR PO ONE (10:32)
[2017-08-08 11:00] LABS: Bilirubin,Urine NEG (Negative); Blood,Urine NEG (Negative); Color,Urine Yellow (Yellow); Mucus,Urine FEW /HPF; Protein,Urine <15 mg/dL mg/dL (Negative)
--- NOTE | 2017-08-08 11:48 | Cat Scan Report ---
CT HEAD WITHOUT CONTRAST: HISTORY: Headache. TECHNIQUE: Sequential 2.5mm CT images. COMPARISON: none. FINDINGS: Cerebral Parenchyma: Within normal limits. Cerebellum: Within normal limits. Brainstem: Within normal limits. Ventricles: Normal. Sella: Normal. Extra-axial spaces: Normal. Basal Cisterns: Normal. Intracranial Hemorrhage: None. Midline Shift: None. Calvarium: Normal. Sinuses: Normal. Mastoid Air Cells: Normal. Visualized Orbits: Normal. IMPRESSION: Cranial CT scan within normal limits.
[2017-08-08 12:08] VITALS: BP 128/81
[2017-08-08] MEDS ORDERED: ATIVAN PO ONE (13:34)
[2017-08-08] MEDS ORDERED: ULTRAM PO ONE (13:34)
== END 2017-08-08 14:17 | disposition admitted as inpatient to this hospital (09) ==
LOC: ED 07:38
DX: R51 Headache (principal); R10.9 Unspecified abdominal pain; I10 Essential (primary) hypertension; E11.9 Type 2 diabetes mellitus without complications; J45.909 Unspecified asthma, uncomplicated; M19.90 Unspecified osteoarthritis, unspecified site
CPT/HCPCS: 36415; 70450; 80053; 81001; 85025; Q0162

== ENCOUNTER 2017-08-15 22:21 | Emergency (ER) | payer MEDICARE ==
[2017-08-15 23:25] LABS: Basophils % (Auto) 0.3 % (0.0-1.8); Eosinophils % (Auto) 0.4 % (0.0-4.3); Hemoglobin 11.5 gm/dl (10.1-14.3); Lymphocytes # (Auto) 1.5 K/mm3 (1.2-5.4); Lymphocytes % (Auto) 13.4 % (13.4-35.0); Mean Corpuscular HGB Conc 32 % (30-34); Mean Corpuscular Hemoglobin 28 pg (28-32); Mean Corpuscular Volume 87 fl (79-97); Monocytes # (Auto) 0.5 K/mm3 (0.0-0.8); Monocytes % (Auto) 4.8 % (0.0-7.3); Platelet Count 371 K/mm3 (140-440); Red Blood Count 4.15 M/mm3 (3.65-5.03); Red Cell Distribution Width 17.9 % (13.2-15.2)
[2017-08-15 23:48] LABS: Alanine Aminotransferase 28 units/L (7-56); Albumin 4.1 g/dL (3.9-5); BUN/Creatinine Ratio 13; Blood Urea Nitrogen 10 mg/dL (7-17); Calcium 9.3 mg/dL (8.4-10.2); Hemolysis Index 1
[2017-08-16] MEDS ORDERED: ULTRAM PO ONE (05:02)
[2017-08-16] MEDS ORDERED: ZOFRAN ODT PO ONE (06:50)
[2017-08-16] MEDS ORDERED: TYLENOL #3 PO ONE (06:51)
--- NOTE | 2017-08-16 07:07 | Emergency Department Report ---
HPI - General Chief Complaint: Abdominal Pain Time Seen by Provider: 08/16/17 06:19 - HPI HPI: The patient is a 61-year-old female who presents for evaluation of abdominal pain. The patient was abdominal pain for the past 3 months, worse over the past one day, currently moderate in severity, crampy in quality, generalized in location, and improved with defecation. She also reports associated recurrent episodes of loose watery stools. The patient denies fever, chills, night sweats , blood in the stool, dark tarry stool, dysuria, hematuria, flank pain, genital discharge, inability to pass flatus. ED Past Medical Hx - Past Medical History Previous Medical History?: Yes Hx Hypertension: Yes Hx Congestive Heart Failure: No Hx Diabetes: Yes Hx Arthritis: Yes Hx Asthma: Yes Hx COPD: No Hx HIV: No - Surgical History Past Surgical History?: Yes Hx Breast Surgery: Yes (breast reduction 07/2016) Additional Surgical History: Breast reduction surgery 07/28 - Social History Smoking Status: Never Smoker Substance Use Type: None - Medications Home Medications: Home Medications Medication Instructions Recorded Confirmed Last Taken Type Metoprolol Xl [Metoprolol 100 mg PO DAILY 06/28/13 10/15/16 10/14/16 19:00 History SUCCINATE ER TAB] 100MG metFORMIN [Glucophage] 500 mg PO BID 06/28/13 10/15/16 10/14/16 19:00 History 500MG Esomeprazole Magnesium [NexIUM] 40 mg PO DAILY 04/20/14 10/15/16 10/14/16 19:00 History 40MG Aspirin BABY CHEW TAB 81 mg PO DAILY 11/11/14 10/15/16 10/14/16 19:00 History 81M G Crestor 10 mg PO DAILY 11/11/14 10/15/16 10/14/16 19:00 History 10MG ALBUTEROL Inhaler [ProAir HFA 2 puff IH QID PRN #1 inhalation 07/08/17 Unknown Rx Inhaler] Amoxicillin/Potassium Clav 1 each PO BID #10 tablet 07/08/17 Unknown Rx [Augmentin 875-125 Tablet] Fluticasone [Flonase] 1 spray NS QDAY #1 bottle 07/08/17 Unknown Rx Prednisone [predniSONE 10 mg 10 mg PO .TAPER #1 tab.ds.pk 07/08/17 Unknown Rx (6-Day Pack, 21 Tabs)] traMADol [Ultram] 50 mg PO Q6HR PRN #14 tablet 07/08/17 Unknown Rx Butalb/Acetamin/Caff 50-325-40 1 tab PO Q6HR PRN #10 tab 08/08/17 Unknown Rx [Fioricet] HYDROcodone/APAP 5-325 [[place] 1 each PO Q6HR PRN #7 tablet 08/08/17 Unknown Rx 5/325] Ondansetron [Zofran Odt] 4 mg PO Q6H #7 tab.rapdis 08/08/17 Unknown Rx Cyclobenzaprine HCl [Flexeril 5 MG 5 mg PO Q8HR PRN #12 tab 08/16/17 Unknown Rx TAB] Omeprazole Magnesium [PriLOSEC Otc] 20 mg PO QDAY #14 tablet.dr 08/16/17 Unknown Rx Ondansetron [Zofran TAB] 4 mg PO Q8HR PRN #15 tablet 08/16/17 Unknown Rx ED Review of Systems ROS: Stated complaint: ABDOMINAL PAIN Other details as noted in HPI Constitutional: denies: fever ENT: denies: throat or neck pain Respiratory: denies: cough, shortness of breath Cardiovascular: denies: chest pain Endocrine: denies unexplained weight loss or gain Gastrointestinal: reports abdominal pain, nausea Genitourinary: denies: dysuria Musculoskeletal: denies: leg swelling Skin: denies: rash Neurological: denies: headache Hematological/Lymphatic: denies: easy bleeding or easy bruising Psych: denies sadness or hopelessness Physical Exam - Physical Exam Vital Signs: Vital Signs 08/15/17 08/16/17 08/16/17 22:57 03:13 03:56 Temperature 98.7 F 98.5 F Pulse Rate 85 68 Respiratory 18 16 Rate Blood Pressure 144/69 Blood Pressure 183/93 [Right] O2 Sat by Pulse 99 99 96 Oximetry 08/16/17 08/16/17 08/16/17 04:00 04:16 04:30 Temperature Pulse Rate Respiratory Rate Blood Pressure 144/60 156/63 Blood Pressure [Right] O2 Sat by Pulse 97 98 98 Oximetry 08/16/17 08/16/17 08/16/17 04:46 05:00 05:27 Temperature Pulse Rate 73 Respiratory 25 H 20 Rate Blood Pressure 147/65 159/76 Blood Pressure [Right] O2 Sat by Pulse 99 98 98 Oximetry Physical Exam: General: well-nourished, well-developed, no acute distress Head: Normocephalic, atraumatic Eyes: normal sclera ENT: Mucous membranes are pink and moist Neck: trachea midline, neck supple, No neck stiffness, no cervical adenopathy Respiratory: Breath sounds equal bilaterally, no wheezing, rales, or rhonchi Cardio: S1 and S2 present, no murmurs, rubs, gallops, capillary refill is brisk Abdomen: Normoactive bowel sounds, soft abdomen, periumbilical tenderness to palpation present, no rigidity, no guarding or rebound tenderness Chest WALL/Back: No tenderness to palpation of the chest wall, no CVA tenderness with percussion Musc: No pitting edema Skin: No rash Neuro: no facial drooping, normal speech Psych: Normal affect ED Course Vital Signs 08/15/17 08/16/17 08/16/17 22:57 03:13 03:56 Temperature 98.7 F 98.5 F Pulse Rate 85 68 Respiratory 18 16 Rate Blood Pressure 144/69 Blood Pressure 183/93 [Right] O2 Sat by Pulse 99 99 96 Oximetry 08/16/17 08/16/17 08/16/17 04:00 04:16 04:30 Temperature Pulse Rate Respiratory Rate Blood Pressure 144/60 156/63 Blood Pressure [Right] O2 Sat by Pulse 97 98 98 Oximetry 08/16/17 08/16/17 08/16/17 04:46 05:00 05:27 Temperature Pulse Rate 73 Respiratory 25 H 20 Rate Blood Pressure 147/65 159/76 Blood Pressure [Right] O2 Sat by Pulse 99 98 98 Oximetry ED Medical Decision Making - Lab Data Result diagrams: 08/15/17 23:08 08/15/17 23:08 - Medical Decision Making The patient was seen and examined by myself. The patient is placed on a collar baster jumpbasting and continuous pulse ox. On initial evaluation, the patient was found to be in no distress. Evaluation orders are placed. The patient is given pain medicine. Lab results were non-concerning including WBC, hemoglobin, hematocrit, electrolytes, renal function, LFTs. The patient was reevaluated and reported that their symptoms were markedly improved. The patient is stable for discharge with outpatient follow-up. The patient is given follow-up and return instructions. The patient expressed understanding and agreed with the plan. The patient is discharged in stable condition. Critical care attestation.: If time is entered above; I have spent that time in minutes in the direct care of this critically ill patient, excluding procedure time. ED Disposition Clinical Impression: Abdominal pain, acute, periumbilical Diarrhea Qualifiers: Diarrhea type: unspecified type Qualified Code(s): R19.7 - Diarrhea, unspecified Disposition: TO HOME OR SELFCARE Is pt being admited?: No Does the pt Need Aspirin: No Condition: Stable Instructions: Abdominal Pain (ED), Gastroenteritis (ED), Food Poisoning (ED) Additional Instructions: Do not take more than the prescribed dose of flexeril pain medicine, or combine or take the pain medicine prescribed to you today with other pain medicine, sleeping medicine or other sedatives, or with alcohol, as doing so may cause central nervous system sedation and respiratory depression, and potentially cause you to stop breathing and . Additionally, do not drive a vehicle, operate heavy machinery, or engage in any activity that would cause harm to yourself or others after taking the pain medicine prescribed to you. Referrals: DIANA MARTINEZ MD [Primary Care Provider] - 3-5 Days Time of Disposition: 07:15
[2017-08-16] MEDS ORDERED: K-DUR PO ONE (07:57)
[2017-08-16 08:03] VITALS: BP 158/72
== END 2017-08-16 08:05 | disposition home or self-care (01) ==
LOC: ED 22:21
DX: R10.33 Periumbilical pain (principal); R19.7 Diarrhea, unspecified; I10 Essential (primary) hypertension; E11.9 Type 2 diabetes mellitus without complications; M19.90 Unspecified osteoarthritis, unspecified site; J45.909 Unspecified asthma, uncomplicated; Z88.8 Allergy status to other drugs, medicaments and biological substances
CPT/HCPCS: 36415; 80053; 85025; Q0162

== ENCOUNTER 2019-04-27 15:58 | Emergency (ER) | payer MEDICARE ==
[2019-04-27] MEDS ORDERED: ALBUTEROL 2.5 MG/3 ML NEBU IH ONE (16:08)
[2019-04-27] MEDS ORDERED: IPRATROPIUM 0.02% NEBU 2.5 ML IH ONE (16:08)
--- NOTE | 2019-04-27 16:08 | Emergency Department Report ---
Blank Doc - Documentation Documentation: 63-year-old female that presents with SOB and wheezing. Stated has cough and chest pain while coughing. This initial assessment/diagnostic orders/clinical plan/treatment(s) is/are subject to change based on patient's health status, clinical progression and re- assessment by fellow clinical providers in the ED. Further treatment and workup at subsequent clinical providers discretion. Patient/guardians urged not to elope from the ED as their condition may be serious if not clinically assessed and managed. Initial orders include: 1- Patient sent to [facility] for further evaluation and treatment 2- CXR 3- breathing treatment
[2019-04-27] MEDS ORDERED: methylPREDNISolone Sod Succinate 125 MG/2 ML INJ IV ONE (16:57)
--- NOTE | 2019-04-27 17:01 | Emergency Department Report ---
ED Asthma HPI - General Chief Complaint: Upper Respiratory Infection Stated Complaint: CHEST PAIN/SORE THROAT Time Seen by Provider: 04/27/19 16:07 Source: patient Mode of arrival: Ambulatory Limitations: No Limitations - History of Present Illness Initial Comments: Is a 63-year-old female with a past medical history of asthma, hypertension, diabetes currently on medication presents to ED complaining of sore throat with coughing and congestion for the past 2 days. Patient states that her cough and began as intermittent dry in nature. Patient states that she follows with primary care Dr. Aime Simpson, out [facility] primary care taker. Patient states that she is having sore throat that began 3 days ago prior to the intermittent coughing. She denies fevers/chills/nausea vomiting. Patient states she takes the medication daily like she should. MD Complaint: "asthma attack" - Related Data Home Medications Medication Instructions Recorded Confirmed Last Taken Metoprolol Xl [Metoprolol 100 mg PO DAILY 06/28/13 10/15/16 10/14/16 19:00 SUCCINATE ER TAB] 100 MG metFORMIN [Glucophage] 500 mg PO BID 06/28/13 10/15/16 10/14/16 19:00 500 MG Esomeprazole Magnesium [NexIUM] 40 mg PO DAILY 04/20/14 10/15/16 10/14/16 19:00 40 MG Aspirin BABY CHEW TAB 81 mg PO DAILY 11/11/14 10/15/16 10/14/16 19:00 81M G Crestor 10 mg PO DAILY 11/11/14 10/15/16 10/14/16 19:00 10 MG Previous Rx's Medication Instructions Recorded Last Taken Type Amoxicillin/Potassium Clav 1 each PO BID #10 tablet 07/08/17 Unknown Rx [Augmentin 875-125 Tablet] Prednisone [predniSONE 10 mg 10 mg PO .TAPER #1 tab.ds.pk 07/08/17 Unknown Rx (6-Day Pack, 21 Tabs)] traMADoL [Ultram] 50 mg PO Q6HR PRN #14 tablet 07/08/17 Unknown Rx Butalb/Acetamin/Caff 50-325-40 1 tab PO Q6HR PRN #10 tab 08/08/17 Unknown Rx [Fioricet] HYDROcodone/APAP 5-325 [[place] 1 each PO Q6HR PRN #7 tablet 08/08/17 Unknown Rx 5/325] Ondansetron [Zofran Odt] 4 mg PO Q6H #7 tab.rapdis 08/08/17 Unknown Rx Cyclobenzaprine HCl [Flexeril 5 MG 5 mg PO Q8HR PRN #12 tab 08/16/17 Unknown Rx TAB] Omeprazole Magnesium [PriLOSEC Otc] 20 mg PO QDAY #14 tablet. 08/16/17 Unknown Rx Ondansetron [Zofran TAB] 4 mg PO Q8HR PRN #15 tablet 08/16/17 Unknown Rx ALBUTEROL Inhaler (OR & NICU) 2 puff IH QID PRN #1 inhalation 04/27/19 Unknown Rx [ProAir HFA Inhaler] Acetamin/Codeine 120-12Mg/5 ml 5 ml PO TID PRN #60 ml 04/27/19 Unknown Rx [Tylenol/Codeine] Fluticasone [Flonase] 1 spray NS QDAY #1 bottle 04/27/19 Unknown Rx Allergies Allergy/AdvReac Type Severity Reaction Status Date / Time lisinopril Allergy Severe Angioedema Verified 10/15/16 13:19 CIDNY Inhibitors AdvReac Severe Angioedema Verified 10/16/16 09:13 ED Review of Systems ROS: Stated complaint: CHEST PAIN/SORE THROAT Other details as noted in HPI Comment: All other systems reviewed and negative ED Past Medical Hx - Past Medical History Previous Medical History?: Yes Hx Hypertension: Yes Hx Congestive Heart Failure: No Hx Diabetes: Yes Hx Arthritis: Yes Hx Asthma: Yes Hx COPD: No Hx HIV: No - Surgical History Past Surgical History?: Yes Hx Breast Surgery: Yes (breast reduction 07/2016) Additional Surgical History: Breast reduction surgery 07/28 - Social History Smoking Status: Never Smoker Substance Use Type: None - Medications Home Medications: Home Medications Medication Instructions Recorded Confirmed Last Taken Type Metoprolol Xl [Metoprolol 100 mg PO DAILY 06/28/13 10/15/16 10/14/16 19:00 History SUCCINATE ER TAB] 100 MG metFORMIN [Glucophage] 500 mg PO BID 06/28/13 10/15/16 10/14/16 19:00 History 500 MG Esomeprazole Magnesium [NexIUM] 40 mg PO DAILY 04/20/14 10/15/16 10/14/16 19:00 History 40 MG Aspirin BABY CHEW TAB 81 mg PO DAILY 11/11/14 10/15/16 10/14/16 19:00 History 81M G Crestor 10 mg PO DAILY 11/11/14 10/15/16 10/14/16 19:00 History 10 MG Amoxicillin/Potassium Clav 1 each PO BID #10 tablet 07/08/17 Unknown Rx [Augmentin 875-125 Tablet] Prednisone [predniSONE 10 mg 10 mg PO .TAPER #1 tab.ds.pk 07/08/17 Unknown Rx (6-Day Pack, 21 Tabs)] traMADoL [Ultram] 50 mg PO Q6HR PRN #14 tablet 07/08/17 Unknown Rx Butalb/Acetamin/Caff 50-325-40 1 tab PO Q6HR PRN #10 tab 08/08/17 Unknown Rx [Fioricet] HYDROcodone/APAP 5-325 [[place] 1 each PO Q6HR PRN #7 tablet 08/08/17 Unknown Rx 5/325] Ondansetron [Zofran Odt] 4 mg PO Q6H #7 tab.rapdis 08/08/17 Unknown Rx Cyclobenzaprine HCl [Flexeril 5 MG 5 mg PO Q8HR PRN #12 tab 08/16/17 Unknown Rx TAB] Omeprazole Magnesium [PriLOSEC Otc] 20 mg PO QDAY #14 tablet. 08/16/17 Unknown Rx Ondansetron [Zofran TAB] 4 mg PO Q8HR PRN #15 tablet 08/16/17 Unknown Rx ALBUTEROL Inhaler (OR & NICU) 2 puff IH QID PRN #1 inhalation 04/27/19 Unknown Rx [ProAir HFA Inhaler] Acetamin/Codeine 120-12Mg/5 ml 5 ml PO TID PRN #60 ml 04/27/19 Unknown Rx [Tylenol/Codeine] Fluticasone [Flonase] 1 spray NS QDAY #1 bottle 04/27/19 Unknown Rx ED Physical Exam - General Limitations: No Limitations General appearance: alert, in no apparent distress - Head Head exam: Present: atraumatic, normocephalic - Eye Eye exam: Present: normal appearance - ENT ENT exam: Present: mucous membranes moist - Neck Neck exam: Present: normal inspection - Respiratory Respiratory exam: Present: normal lung sounds bilaterally, wheezes (moderate bilaterally). Absent: respiratory distress - Cardiovascular Cardiovascular Exam: Present: regular rate, normal rhythm. Absent: systolic murmur, diastolic murmur, rubs, gallop - GI/Abdominal GI/Abdominal exam: Present: soft, normal bowel sounds - Extremities Exam Extremities exam: Present: normal inspection - Back Exam Back exam: Present: normal inspection - Neurological Exam Neurological exam: Present: alert, oriented X3 - Psychiatric Psychiatric exam: Present: normal affect, normal mood - Skin Skin exam: Present: warm, dry, intact, normal color. Absent: rash ED Course Vital Signs 04/27/19 04/27/19 04/27/19 16:07 16:20 16:30 Temperature 98.2 F Pulse Rate 72 64 72 Pulse Rate [ Anterior Bilateral Throughout] Respiratory 52 H 29 H 21 Rate Respiratory Rate [Anterior Bilateral Throughout] Blood Pressure 133/48 131/70 Blood Pressure [Left] O2 Sat by Pulse 99 98 Oximetry 04/27/19 04/27/19 04/27/19 16:38 17:01 17:31 Temperature Pulse Rate 72 89 Pulse Rate [ 72 Anterior Bilateral Throughout] Respiratory 26 H 26 H Rate Respiratory 20 Rate [Anterior Bilateral Throughout] Blood Pressure 134/65 134/65 Blood Pressure [Left] O2 Sat by Pulse 98 100 Oximetry 04/27/19 19:02 Temperature Pulse Rate 102 H Pulse Rate [ Anterior Bilateral Throughout] Respiratory 28 H Rate Respiratory Rate [Anterior Bilateral Throughout] Blood Pressure Blood Pressure 134/90 [Left] O2 Sat by Pulse 95 Oximetry ED Medical Decision Making - Radiology Data Radiology results: report reviewed, image reviewed Impression: No acute cardiopulmonary process - Medical Decision Making 63-year-old female presents with asthma exacerbation Rapid strep test was done due to patient complaining of throat pain. Sharp test was negative. Patient received breathing treatment of DuoNeb as well as Solu-Medrol and magnesium in the emergency department. Chest x-ray was completed and negative. I discussed this findings with the patient. Post evaluation shows patient much better. Mild wheezing bilaterally. Patient's saturation increased room air Pt. reports feeling much better after treatment. Critical care attestation.: If time is entered above; I have spent that time in minutes in the direct care of this critically ill patient, excluding procedure time. ED Disposition Clinical Impression: Asthma exacerbation Disposition: DC-01 TO HOME OR SELFCARE Is pt being admited?: No Does the pt Need Aspirin: No Condition: Stable Instructions: Asthma (ED), Bronchospasm (ED) Additional Instructions: follow-up with ear primary care physician Dr. Aime Simpson. Vital signs are normal patient is in no acute distress. Please take your medication as you've been prescribed. Your chest x-ray in the ER was normal and does not show any signs of infection. Prescriptions: Fluticasone [Flonase] 1 spray NS QDAY #1 bottle ALBUTEROL Inhaler (OR & NICU) [ProAir HFA Inhaler] 2 puff IH QID PRN #1 inhalation PRN Reason: Shortness Of Breath Acetamin/Codeine 120-12Mg/5 ml [Tylenol/Codeine] 5 ml PO TID PRN #60 ml PRN Reason: Pain Referrals: JACOB DOMINGUEZ MD [Referring] - 3-5 Days [facility] [Outside] - 3-5 Days [facility] [Provider Group] - 3-5 Days Forms: Accompanied Note, Work/School Release Form(ED)
--- NOTE | 2019-04-27 17:10 | XRay Report ---
CHEST 1 VIEW 04/27/2019 4:16 PM INDICATION / CLINICAL INFORMATION: cough/SOB/wheezing. COMPARISON: 07/06/2017 FINDINGS: SUPPORT DEVICES: None. HEART / MEDIASTINUM: No significant abnormality. LUNGS / PLEURA: No significant pulmonary or pleural abnormality. No pneumothorax. ADDITIONAL FINDINGS: No significant additional findings. IMPRESSION: 1. No acute findings. Signer Name: Hemanth Aguilar MD Signed: 04/27/2019 5:06 PM Workstation Name: [id number]
[2019-04-27] MEDS ORDERED: MAGNESIUM SULFATE 2 GM/50 ML BAG IV ONE (17:44)
[2019-04-27] MEDS ORDERED: ACETAMINOPEN W/CODEINE 120-12MG ORAL LIQD 5 ML PO ONE (17:45)
[2019-04-27 19:03] VITALS: BP 134/90
== END 2019-04-27 19:11 | disposition home or self-care (01) ==
LOC: ED 15:58
DX: J45.901 Unspecified asthma with (acute) exacerbation (principal); I10 Essential (primary) hypertension; E11.9 Type 2 diabetes mellitus without complications; M19.90 Unspecified osteoarthritis, unspecified site; Z98.890 Other specified postprocedural states; Z79.899 Other long term (current) drug therapy; Z88.8 Allergy status to other drugs, medicaments and biological substances
CPT/HCPCS: 71045; 87116; 87430; 94640; 96365; 96375; 99284; J2930; J3475; 94644

== ENCOUNTER 2021-06-07 06:32 | Outpatient (CLI) | payer MEDICARE ==
--- NOTE | 2021-06-07 16:43 | Magnetic Resonance Report ---
MR abdomen wo/w con INDICATION / CLINICAL INFORMATION: PANCREATIC CYST. TECHNIQUE: Multiplanar, multisequence MR images of the abdomen were obtained before and after contrast. COMPARISON: MRI abdomen July 06 2017 FINDINGS: Liver: Liver appears within normal limits. Gallbladder: No gallstones, gallbladder wall thickening, or pericholecystic fluid. Biliary ducts: Gallbladder surgically absent. Pancreas: 8 mm cyst seen in the pancreatic body. The cyst contains thin septations. No pancreatic adrian jasmyne dilation. No suspicious enhancing nodularity. No calcifications. On prior CT the lesion measured 1.7 cm. Other: No significant abnormality identified within the spleen, kidneys, or adrenal glands. IMPRESSION: 8 mm cyst seen within the pancreatic body appear smaller than 2018 and thus is most likely benign in etiology. However, annual follow-up is recommended with MRI with and without contrast. Signer Name: Dav Diana MD Signed: 06/07/2021 4:38 PM Workstation Name: [id number]
== END 2021-06-07 06:33 | disposition home or self-care (01) ==
LOC: MRI 06:32
PROVIDERS: ATTEND Internal Medicine Gastroenterology
DX: K86.2 Cyst of pancreas (principal); Z90.49 Acquired absence of other specified parts of digestive tract
CPT/HCPCS: 36415; 74183; 82565; 84520; A9575